=== PATIENT | female | born 1985 | race Two or more races ===

== ENCOUNTER 2019-01-25 11:22 | Emergency (ER) | payer SELFPAY ==
[~2019-01-25] VITALS: Ht 162.6 cm; Wt 54.9 kg
[2019-01-25 11:38] VITALS: BP 128/88
[2019-01-25 11:51] LABS: APPEARANCE,URINE Clear (CLEAR); BILIRUBIN,URINE Negative (NEGATIVE); BLOOD, URINE Large Ery/uL (NEGATIVE); COLOR,URINE Yellow (YELLOW); KETONES,URINE Negative (NEGATIVE); LEUKOCYTE ESTERASE ,URINE Large (NEGATIVE); NITRITE, URINE Negative (NEGATIVE); PH,URINE 7.5 (5.0-8.0); PROTEIN,URINE Negative (NEGATIVE); UGLUCOSE Negative (NEGATIVE); UROBILINOGEN,URINE 0.2 EU/dL (0.2)
[2019-01-25 11:54] LABS: RBC,URINE 21-50 /HPF (0-2); WBC,URINE 21-50 /HPF (0-3)
[2019-01-25 11:55] LABS: BACTERIA,URINE 1+ /HPF (None Seen); SQUAMOUS EPITHELIAL CELL,UR Moderate /HPF (None Seen)
== END 2019-01-25 12:22 | disposition home or self-care (01) ==
LOC: ER 11:28
DX: N39.0 Urinary tract infection, site not specified (principal); K21.9 Gastro-esophageal reflux disease without esophagitis
CPT/HCPCS: 81000-TC; 84703-TC; 87086-TC

== ENCOUNTER 2019-02-04 01:06 | Emergency (ER) | payer SELFPAY ==
[~2019-02-04] VITALS: Ht 162.6 cm; Wt 59.0 kg
--- NOTE | 2019-02-04 01:15 | NUR ---
PT BIBFAMILY C/O ABD PAIN RADIATING TO MID BACK X 22 DAYS. PT STATES SHE WAS TREATED FOR UTI HERE 10 DAYS AGO. PT AXO4. RESPIRATIONS EVEN AND UNLABORED. PT PUT ON THE CALL MANAGER AND PULSE OX. PENDING EVAL FROM [facility].
[2019-02-04] MEDS ORDERED: IV NS 0.9% 1,000 ML BAG IV ONE (01:30)
[2019-02-04] MEDS ORDERED: PANTOPRAZOLE 40 MG VIAL IV ONE (01:30)
[2019-02-04] MEDS ORDERED: MAG HYDROX/AL HYDROX/SIMETH 30 ML UDC PO ONE (01:30)
[2019-02-04] MEDS ORDERED: MAG HYDROX/AL HYDROX/SIMETH 30 ML UDC ONE (01:32)
[2019-02-04] MEDS ORDERED: PANTOPRAZOLE 40 MG VIAL ONE (01:32)
[2019-02-04 01:47] LABS: BASOPHILS # (AUTO) 0.1 /CMM (0.0-0.2); BASOPHILS % (AUTO) 1.2 % (0.0-2.0); EOSINOPHILS % (AUTO) 3.8 % (0.0-6.0); HEMATOCRIT 36 % (33-45); HEMOGLOBIN 11.5 g/dL (11.5-14.8); LYMPHOCYTES # (AUTO) 2.1 /CMM (0.8-4.8); LYMPHOCYTES % (AUTO) 38.8 % (20.0-44.0); MEAN CORPUSCULAR HGB CONC 32 g/dl (31.0-36.0); MEAN CORPUSCULAR VOLUME 70 fL (82-100); MONOCYTES # (AUTO) 0.6 /CMM (0.1-1.30); MONOCYTES % (AUTO) 10.4 % (2.0-12.0); NEUTROPHILS # (AUTO) 2.5 /CMM (1.8-8.9); NEUTROPHILS % (AUTO) 45.8 % (43.0-81.0); PLATELET COUNT (AUTO) 220 /CMM (150-450); RED BLOOD CELL COUNT(AUTO) 5.16 MIL/uL (4.0-5.2); WHITE BLOOD COUNT (AUTO) 5.4 K/uL (4.3-11.0)
[2019-02-04 01:53] LABS: CALCIUM, SERUM 8.9 mg/dL (8.5-10.1); CREATININE 0.7 mg/dL (0.6-1.3); POTASSIUM 4.1 mmol/L (3.5-5.1)
[2019-02-04 01:59] LABS: ALBUMIN 3.9 g/dL (3.4-5.0); BILIRUBIN,DIRECT 0.1 mg/dL (0.0-0.2); BILIRUBIN,TOTAL 0.3 mg/dL (0.2-1.0); TOTAL PROTEIN, SERUM 7.3 g/dL (6.4-8.2)
--- NOTE | 2019-02-04 02:35 | NUR ---
Patient discharged to home in stable condition. Written and verbal after care instructions given. Patient verbalizes understanding of instruction. IV removed. Catheter intact and site benign. Pressure and 4x4 applied to site. No bleeding noted.
[2019-02-04 02:36] VITALS: BP 125/74
== END 2019-02-04 02:37 | disposition home or self-care (01) ==
LOC: ER 01:10
DX: K29.70 Gastritis, unspecified, without bleeding (principal); K21.9 Gastro-esophageal reflux disease without esophagitis; Z88.1 Allergy status to other antibiotic agents
CPT/HCPCS: 36415; 80048; 80076; 83690; 85025; 96361; 96374; 99283; C9113; J7030